=== PATIENT | male | born 1965 | race Caucasian/White ===

== ENCOUNTER → 2019-11-09 09:17 | Outpatient (CLI) | payer OTHER, SELFPAY ==
[2019-11-09 10:08] LABS: Hemoglobin A1c 6.7 % (3.8-5.6)
[2019-11-09 10:09] LABS: ALB/GLOB Ratio 1.2 RATIO (0.9-2.4); AST(SGOT) 20 U/L (15-37); Alanine Aminotransfer ALT/SGPT 51 U/L (16-61); Alkaline Phosphatase 55 U/L (45-117); Anion Gap 8 (5-15); BUN 17 mg/dL (7-18); BUN/Creat Ratio 18.8 RATIO (10-20); Calcium,Total 9.3 mg/dL (8.5-10.1); Chloride 105 mmol/L (98-107); Cholesterol 117 mg/dL (200); EST Glomerular Filtration Rate 93 mL/min (>60); Est Glom Filt Rate - Afr Amer 112 mL/min (>60); Globulin 3.4 g/dL (2.2-4.2); Glucose 174 mg/dL (74-106); High Density Lipoprotein 42 mg/dL; PSA,Total - Annual Screen 0.46 ng/mL (0.00-4.00); Potassium 4.3 mmol/L (3.5-5.1); Protein, Total 7.4 g/dL (6.4-8.2); Sodium Level 140 mmol/L (136-145); Triglycerides 97 mg/dL; Very Low Density Lipoprotein 19 mg/dL (5-40)
== END ==
PROVIDERS: PCP Family Medicine; Visit Provider Family Medicine
DX: Z00.00 Encounter for general adult medical examination without abnormal findings (principal); E11.9 Type 2 diabetes mellitus without complications; Z12.5 Encounter for screening for malignant neoplasm of prostate
CPT/HCPCS: 36415; 80053; 80061; 82043; 82570; 83036; 84153; G0103

== ENCOUNTER → 2022-03-15 | Outpatient (CLI) | payer OTHER, SELFPAY ==
[2022-03-15 12:13] LABS: Absolute Lymphocyte Count 2.86 X10^3/uL (0.83-4.51); Basophil# 0.08 X10^3/uL; Eosinophil# 0.23 X10^3/uL; Hematocrit 39.9 % (40-54); Hemoglobin 13.2 g/dL (13.0-16.5); Lymphocyte # 2.86 X10^3/ul (0.83-4.51); Lymphocyte % 37.4 % (19-41); Mean Corp Hgb Conc 33.1 g/dL (32-36); Mean Corpuscular Hgb 29.4 pg (27.0-32.0); Mean Corpuscular Volume 88.9 fL (80-94); Mean Platelet Vol. 11.3 fl (6.2-12.0); Monocyte# 0.49 X10^3/uL; Monocyte% 6.4 % (0-10); NRBC Flagged by Analyzer 0 % (0-5); Neutrophil # 3.97 X10^3/uL (2.7-7.7); Neutrophil % 51.9 % (47-70); Platelet Count 345 K/mm3 (150-450); RBC Distribution Width CV 13.3 % (11.6-14.6); RBC Distribution Width SD 43.6 fl (35.1-43.9); Red Blood Count 4.49 M/mm3 (4.6-6.2); White Blood Count 7.7 K/mm3 (4.4-11.0)
[2022-03-15 12:19] LABS: ALB/GLOB Ratio 1.2 RATIO (0.9-2.4); AST(SGOT) 34 U/L (15-37); Alanine Aminotransfer ALT/SGPT 57 U/L (16-61); Alkaline Phosphatase 51 U/L (45-117); Anion Gap 10 (5-15); BUN 22 mg/dL (7-18); BUN/Creat Ratio 21.8 RATIO (10-20); Calcium,Total 9.2 mg/dL (8.5-10.1); Chloride 103 mmol/L (98-107); Cholesterol 109 mg/dL (200); Creatinine, Serum 1.01 mg/dL (0.70-1.30); EST Glomerular Filtration Rate 81 mL/min (>60); Est Glom Filt Rate - Afr Amer 98 mL/min (>60); Globulin 3.3 g/dL (2.2-4.2); Glucose 138 mg/dL (74-106); High Density Lipoprotein 36 mg/dL; PSA,Total - Annual Screen 0.48 ng/mL (0.00-4.00); Potassium 3.8 mmol/L (3.5-5.1); Protein, Total 7.3 g/dL (6.4-8.2); Sodium Level 138 mmol/L (136-145); Triglycerides 181 mg/dL; Very Low Density Lipoprotein 36 mg/dL (5-40)
[2022-03-15 12:53] LABS: Microalbumin:Creatinine Ratio 351.1 mg/g CRE (<30 mg/g CRE)
== END | disposition home or self-care (01) ==
LOC: BFHLAB 10:01
PROVIDERS: PCP Family Medicine; Visit Provider Family Medicine
DX: Z00.00 Encounter for general adult medical examination without abnormal findings (principal); E11.9 Type 2 diabetes mellitus without complications; Z12.5 Encounter for screening for malignant neoplasm of prostate
CPT/HCPCS: 36415; 80053; 80061; 82043; 82570; 84153; 85025; G0103

== ENCOUNTER → 2023-06-06 | Outpatient (CLI) | payer BC, SELFPAY ==
--- OUTSIDE RECORDS SUMMARY | 2023-06-06 09:56 | XMS RPT_ITS | CCD ---
Author Name Unknown Address [address] [place] [address] Organization [facility] Allergies Allergy Classification Reported Allergen(s) Allergy Type Date of Onset Reaction(s) Facility (1 source) HOMEOPATHIC PRODUCTS; Translations: [HOMEOPATHIC PRODUCTS] Propensity to adverse reactions to drug (disorder) [facility] Other [place] Repository Problems Problem Classification Problem Date Documented Da te Episodic/Chronic Skin and subcutaneous tissue infections (1 source) Cellulitis of right finger; Translations: [Cellulitis of right finger] Onset: 10-28-2016 Episodic Encounters Encounter Date Encounter Type Care Provider Facility Start: 10-28-2016 End: 10-29-2016 Emergency department patient visit [facility] Progress note 02-13-2021 Note Date & Type Note Facility 02-13-2021 Note HNO ID: [id number] Author: Ayah Alonzo Service: ? Author Type: ? Type: Progress Notes Filed: 02/13/2021 12:21 PM Note Text: POPULATION HEALTH NAVIGATION OUTREACH Action/I Colorectal Cancer Screening- Lm and sent Sanerahart message with call back number. Contact made with patient or family member? NO Pt identified by name and : NO Outreach Outcome/Action Unable to reach patient: Left message MyChart message sent Reason for Outreach Care Gap or Scheduling/Wellness visits Payer: Payor: LIMITED BENEFITS PLAN / Plan: ADMINISTRATIVE CONCEPTS / Product Type: Other / Care Gap Reviewed:: Annual Wellness visit Colorectal Cancer Screening Diabetic Eye Exam HBA1C Reminder: Reminder note to check Health Maintenance for items below Health Maintenance items due: COVID-19 VACCINE(1) Never done HIV SCREENING Never done SHINGRIX VACCINE(1 of 2) Never done DEPRESSION SCREENING due on 01/21/2019 HBA1C due on 01/23/2019 LDL CHOLESTEROL due on 07/24/2019 DIABETIC FOOT EXAM due on 07/25/2019 ANNUAL PCP TEAM CHRONIC DISEASE VISIT due on 07/25/2019 DILATED RETINAL EXAM due on 10/10/2019 COLORECTAL CANCER SCREENING due on 02/04/2020 PROSTATE CANCER SCREENING DISCUSSION due on 04/15/2020 INFLUENZA(1) due on 01/17/2021 Navigation Signature: Ayah Clarke [facility] February 13, 2021 12:10 PM [facility] Clinical Note 02-13-2021 Note Date & Type Note Facility 02-13-2021 Note Patient Outreach (NE TNAV) NICK COTE ([id number]) 1965 M Date Time Provider Department 02/13/21 AYAH CLARKE ([facility]) [facility] During your visit today, we recorded the following information about you: Ayah Clarke [facility] 02/13/2021 12:21 PM Signed POPULATION HEALTH NAVIGATION OUTREACH Action/I Colorectal Cancer Screening- Lm and sent Strutta message with call back number. Contact made with patient or family member? NO Pt identified by name and : NO Outreach Outcome/Action Unable to reach patient: [facility] Reason for Outreach Care Gap or Scheduling/Wellness visits Payer: Payor: LIMITED BENEFITS PLAN / Plan: ADMINISTRATIVE CONCEPTS / Product Type: Other / Care Gap Reviewed:: Annual Wellness visit Colorectal Cancer Screening Diabetic Eye Exam HBA1C Reminder: Reminder note to check Health Maintenance for items below Health Maintenance items due: COVID-19 VACCINE(1) Never done HIV SCREENING Never done SHINGRIX VACCINE(1 of 2) Never done DEPRESSION SCREENING due on 01/21/2019 HBA1C due on 01/23/2019 LDL CHOLESTEROL due on 07/24/2019 DIABETIC FOOT EXAM due on 07/25/2019 ANNUAL PCP TEAM CHRONIC DISEASE VISIT due on 07/25/2019 DILATED RETINAL EXAM due on 10/10/2019 COLORECTAL CANCER SCREENING due on 02/04/2020 PROSTATE CANCER SCREENING DISCUSSION due on 04/15/2020 INFLUENZA(1) due on 01/17/2021 Navigation Signature: Ayah Alonzo February 13, 2021 12:10 PM Allergies As of Date: 02/13/2021 Noted Allergy Reaction HAYFEVER (HOMEOPATHIC PRODUCTS) 09/04/2007 Date Reviewed: 07/24/2018 Reviewed by: Alexis Jones - Fully Assessed Reason for Visit: Population Health Navigation Outreach [3910] Cmt: COLORECTAL CANCER SCREENING Prescriptions as of 02/13/2021 - lisinopril (ZESTRIL, PRINIVIL) 20 mg tablet Take 1 tablet by mouth once daily. - metFORMIN (GLUCOPHAGE) 1,000 mg tablet TAKE 1 TABLET BY MOUTH TWICE A DAY WITH MEALS - simvastatin (ZOCOR) 20 mg tablet Take 1 tablet by mouth daily at bedtime. - JANUVIA 100 mg tablet TAKE 1 TABLET BY MOUTH EVERY DAY - blood sugar diagnostic (n1healthUCH ULTRA TEST) test strip once daily. Use as instructed - Aspirin 81 mg Tab Take 1 tablet by mouth once daily. Take with food. - TRAVOPROST, BENZALKONIUM, (TRAVATAN OPHTHALMIC) Use in eyes. - METRONIDAZOLE (METROGEL TOPICAL) Apply to affected area. Problem List As Of Date 02/13/2021 Noted Resolved GLAUCOMA NOS [H40.9] 09/04/2007 ABN BLOOD CHEMISTRY NEC [R79.89] 09/04/2007 ELEV BL PRES W/O HYPERTN [R03.0] 09/04/2007 MIXED HYPERLIPIDEMIA [E78.2] 09/04/2007 HEMATURIA NOS [R31.9] 08/19/2008 Diabetes mellitus type 2, controlled, without c*04/08/2011 Albuminuria [R80.9] 07/21/2012 Special screening for malignant neoplasms, colo*02/03/2015 02/03/2015 Encounter Status:Closed by AYAH CARLOS on 02/13/21 [facility] Progress note 08-08-2020 Note Date & Type Note Facility 08-08-2020 Note HNO ID: [id number] Author: Sheela Cedillo Service: ? Author Type: ? Type: Progress Notes Filed: 08/08/2020 2:49 PM Note Text: POPULATION HEALTH NAVIGATION OUTREACH Action/FYI Patient declined services. No reason given Contact made with patient or family member? YES Pt identified by name and : YES Outreach Outcome/Action Spoke to patient or caregiver: Patient declined navigation services Reason for Outreach Care Gap or Scheduling/Wellness visits Payer: Payor: LIMITED BENEFITS PLAN / Plan: ADMINISTRATIVE CONCEPTS / Product Type: Other / Care Gap Reviewed:: Colorectal Cancer Screening Diabetic Eye Exam Reminder: Reminder note to check Health Maintenance for items below Health Maintenance items due: HIV SCREENING Completed SHINGRIX VACCINE(1 of 2) Completed DEPRESSION SCREENING due on 01/21/2019 HBA1C due on 01/23/2019 LDL CHOLESTEROL due on 07/24/2019 DIABETIC FOOT EXAM due on 07/25/2019 ANNUAL PCP TEAM CHRONIC DISEASE VISIT due on 07/25/2019 DILATED RETINAL EXAM due on 10/10/2019 INFLUENZA(1) due on 01/18/2020 COLORECTAL CANCER SCREENING due on 02/04/2020 PROSTATE CANCER SCREENING DISCUSSION due on 04/15/2020 Advanced Directives Completed: Have you ever planned for future healthcare decisions with a power of corporate associate attorney, living will, or advance directives? Referrals: Message Sent to Practice: Navigation Signature: Sheela Cedillo August 08, 2020 2:40 PM [facility] Clinical Note 08-08-2020 Note Date & Type Note Facility 08-08-2020 Note Patient Outreach (NE TNAV) NICK COTE ([id number]) 1965 M Date Time Provider Department 08/08/20 LOLA SAMUEL During your visit today, we recorded the following information about you: Sheela Cedillo 08/08/2020 2:49 PM Signed POPULATION HEALTH NAVIGATION OUTREACH Action/FYI Patient declined services. No reason given Contact made with patient or family member? YES Pt identified by name and : YES Outreach Outcome/Action Spoke to patient or caregiver: Patient declined navigation services Reason for Outreach Care Gap or Scheduling/Wellness visits Payer: Payor: LIMITED BENEFITS PLAN / Plan: ADMINISTRATIVE CONCEPTS / Product Type: Other / Care Gap Reviewed:: Colorectal Cancer Screening Diabetic Eye Exam Reminder: Reminder note to check Health Maintenance for items below Health Maintenance items due: HIV SCREENING Completed SHINGRIX VACCINE(1 of 2) Completed DEPRESSION SCREENING due on 01/21/2019 HBA1C due on 01/23/2019 LDL CHOLESTEROL due on 07/24/2019 DIABETIC FOOT EXAM due on 07/25/2019 ANNUAL PCP TEAM CHRONIC DISEASE VISIT due on 07/25/2019 DILATED RETINAL EXAM due on 10/10/2019 INFLUENZA(1) due on 01/18/2020 COLORECTAL CANCER SCREENING due on 02/04/2020 PROSTATE CANCER SCREENING DISCUSSION due on 04/15/2020 Advanced Directives Completed: Have you ever planned for future healthcare decisions with a power of corporate associate attorney, living will, or advance directives? Referrals: Message Sent to Practice: Navigation Signature: Sheela Cedillo August 08, 2020 2:40 PM Allergies As of Date: 08/08/2020 Noted Allergy Reaction HAYFEVER (HOMEOPATHIC PRODUCTS) 09/04/2007 Date Reviewed: 07/24/2018 Reviewed by: Alexis Jones - Fully Assessed Reason for Visit: Population Health Navigation Outreach [3910] Cmt: Deferred Care Prescriptions as of 08/08/2020 Sig: LISINOPRIL 20 MG TABLET Take 1 tablet by mouth once d* METFORMIN 1,000 MG TABLET TAKE 1 TABLET BY MOUTH TWICE * SIMVASTATIN 20 MG TABLET Take 1 tablet by mouth daily * JANUVIA 100 MG TABLET TAKE 1 TABLET BY MOUTH EVERY * BLOOD SUGAR DIAGNOSTIC STRIPS once daily. Use as instructed ASPIRIN 81 MG TABLET Take 1 tablet by mouth once d* TRAVATAN OPHTHALMIC Use in eyes. METROGEL TOPICAL Apply to affected area. Problem List As Of Date 08/08/2020 Noted Resolved GLAUCOMA NOS [H40.9] 09/04/2007 ABN BLOOD CHEMISTRY NEC [R79.89] 09/04/2007 ELEV BL PRES W/O HYPERTN [R03.0] 09/04/2007 MIXED HYPERLIPIDEMIA [E78.2] 09/04/2007 HEMATURIA NOS [R31.9] 08/19/2008 Diabetes mellitus type 2, controlled, without c*04/08/2011 Albuminuria [R80.9] 07/21/2012 Special screening for malignant neoplasms, colo*02/03/2015 02/03/2015 Encounter Status:Closed by SHEELA GALINDO on 08/08/20 [facility] Clinical Note 08-07-2020 Note Date & Type Note Facility 08-07-2020 Note Patient Outreach (FP WADS) ROCAELNICK Zamora ([id number]) 1965 M Date Time Provider Department 08/07/20 CHEIKH RITTER During your visit today, we recorded the following information about you: Ubaldo Imtiaz [facility] 08/07/2020 10:30 AM Signed Care Gap Reviewed: Follow-up appointment Phone call placed to patient. Pt identified by name and : YES Outreach Outcome/Action: Spoke to patient or caregiver: Patient declined navigation services If patient deferred or declined to schedule appointment, please indicate the reason(s): Received care somewhere else Ubaldo [facility] Allergies As of Date: 08/07/2020 Noted Allergy Reaction HAYFEVER (HOMEOPATHIC PRODUCTS) 09/04/2007 Date Reviewed: 07/24/2018 Reviewed by: Alexis Jones - Fully Assessed Reason for Visit: Appointment [[id number]] Prescriptions as of 08/07/2020 Sig: LISINOPRIL 20 MG TABLET Take 1 tablet by mouth once d* METFORMIN 1,000 MG TABLET TAKE 1 TABLET BY MOUTH TWICE * SIMVASTATIN 20 MG TABLET Take 1 tablet by mouth daily * JANUVIA 100 MG TABLET TAKE 1 TABLET BY MOUTH EVERY * BLOOD SUGAR DIAGNOSTIC STRIPS once daily. Use as instructed ASPIRIN 81 MG TABLET Take 1 tablet by mouth once d* TRAVATAN OPHTHALMIC Use in eyes. METROGEL TOPICAL Apply to affected area. Problem List As Of Date 08/07/2020 Noted Resolved GLAUCOMA NOS [H40.9] 09/04/2007 ABN BLOOD CHEMISTRY NEC [R79.89] 09/04/2007 ELEV BL PRES W/O HYPERTN [R03.0] 09/04/2007 MIXED HYPERLIPIDEMIA [E78.2] 09/04/2007 HEMATURIA NOS [R31.9] 08/19/2008 Diabetes mellitus type 2, controlled, without c*04/08/2011 Albuminuria [R80.9] 07/21/2012 Special screening for malignant neoplasms, colo*02/03/2015 02/03/2015 Encounter Status:Closed by HI LIFT OPERATOR GALILEA UBALDO Imtiaz on 08/07/20 [facility] Progress note 08-07-2020 Note Date & Type Note Facility 08-07-2020 Note HNO ID: [id number] Author: Ubaldodeanna Alonzo Service: ? Author Type: ? Type: Progress Notes Filed: 08/07/2020 10:30 AM Note Text: Care Gap Reviewed: Follow-up appointment Phone call placed to patient. Pt identified by name and : YES Outreach Outcome/Action: Spoke to patient or caregiver: Patient declined navigation services If patient deferred or declined to schedule appointment, please indicate the reason(s): Received care somewhere else Ubaldo Alonzo [facility] Summary Purpose Family History No Family History Records FoundNo Family History Records Found Advance Directives No Advanced Directives Records FoundNo Advanced Directives Records Found Additional Source Comments (unrecognized sect ion and content) No Status Records FoundNo Status Records Found INFORMATION SOURCE (unrecogn ized section and content) DATE CREATED AUTHOR AUTHOR'S ORGANIZ ATION 07/12/2021 [facility] FOR RECORDS PERTAINING TO PATIENTS WHO ARE OR HAVE BEEN ENROLLED IN A CHEMICAL DEPENDENCY/SUBSTANCEABUSE PROGRAM, SOME INFORMATION MAY BE OMITTED. This clinical summary was aggregated from multiple sources. Caution should be exercised in using it in the provision of clinical care. This summary normalizes information from multiple sources, and as a consequence, information in this document may materially change the coding, format and clinical context of patient data. In addition, data may be omitted in some cases. CLINICAL DECISIONS SHOULD BE BASED ON THE PRIMARY CLINICAL RECORDS. [employer] provides no warranty or guarantee of the accuracy or completeness of information in this document.
[2023-06-06 12:32] LABS: Absolute Lymphocyte Count 2.45 X10^3/uL (0.83-4.51); Absolute Neutrophil Count 4.6 X10^3/uL (2.0-7.7); Basophil# 0.06 X10^3/uL; Basophil% 0.8 % (0-1); Eosinophil# 0.29 X10^3/uL; Eosinophils% 3.7 % (0-5); Hematocrit 40.4 % (40-54); Hemoglobin 12.5 g/dL (13.0-16.5); Lymphocyte # 2.45 X10^3/ul (0.83-4.51); Lymphocyte % 31.1 % (19-41); Mean Corp Hgb Conc 30.9 g/dL (32-36); Mean Corpuscular Volume 90.6 fL (80-94); Mean Platelet Vol. 11.4 fl (6.2-12.0); Monocyte% 6.4 % (0-10); NRBC Flagged by Analyzer 0 % (0-5); Neutrophil # 4.55 X10^3/uL (2.7-7.7); Neutrophil % 57.7 % (47-70); Platelet Count 345 K/mm3 (150-450); RBC Distribution Width CV 13.3 % (11.6-14.6); RBC Distribution Width SD 43.9 fl (35.1-43.9); Red Blood Count 4.46 M/mm3 (4.6-6.2); White Blood Count 7.9 K/mm3 (4.4-11.0)
[2023-06-06 13:21] LABS: ALB/GLOB Ratio 1.2 RATIO (0.9-2.4); AST(SGOT) 44 U/L (15-37); Alanine Aminotransfer ALT/SGPT 66 U/L (16-61); Alkaline Phosphatase 50 U/L (45-117); Anion Gap 8 (5-15); BUN 21 mg/dL (7-18); BUN/Creat Ratio 21.4 RATIO (10-20); Calcium,Total 9.7 mg/dL (8.5-10.1); Chloride 104 mmol/L (98-107); Cholesterol 103 mg/dL (200); Creatinine, Serum 0.98 mg/dL (0.70-1.30); EST Glomerular Filtration Rate 83 mL/min (>60); Est Glom Filt Rate - Afr Amer 101 mL/min (>60); Globulin 3.4 g/dL (2.2-4.2); Glucose 170 mg/dL (74-106); High Density Lipoprotein 37 mg/dL; Potassium 4.4 mmol/L (3.5-5.1); Protein, Total 7.4 g/dL (6.4-8.2); Sodium Level 137 mmol/L (136-145); Triglycerides 167 mg/dL; Very Low Density Lipoprotein 33 mg/dL (5-40)
[2023-06-06 13:33] LABS: Microalbumin:Creatinine Ratio 365.3 mg/g CRE (<30 mg/g CRE)
== END | disposition home or self-care (01) ==
LOC: BFHLAB 09:28
PROVIDERS: PCP Family Medicine; Visit Provider Family Medicine
DX: Z00.00 Encounter for general adult medical examination without abnormal findings (principal); E11.9 Type 2 diabetes mellitus without complications; Z12.5 Encounter for screening for malignant neoplasm of prostate
CPT/HCPCS: 36415; 80053; 80061; 82043; 82570; 84153; 85025; G0103

== ENCOUNTER → 2024-08-20 | Outpatient (CLI) | payer OTHER, SELFPAY ==
[2024-08-20 12:18] LABS: Absolute Lymphocyte Count 2.92 X10^3/uL (0.83-4.51); Absolute Neutrophil Count 7.3 X10^3/uL (2.0-7.7); Basophil# 0.05 X10^3/uL; Basophil% 0.4 % (0-1); Eosinophil# 0.55 X10^3/uL; Eosinophils% 4.8 % (0-5); Hematocrit 40.8 % (40-54); Lymphocyte # 2.92 X10^3/ul (0.83-4.51); Lymphocyte % 25.4 % (19-41); Mean Corp Hgb Conc 31.9 g/dL (32-36); Mean Corpuscular Hgb 28.6 pg (27.0-32.0); Mean Corpuscular Volume 89.7 fL (80-94); Mean Platelet Vol. 11.2 fl (6.2-12.0); Monocyte# 0.65 X10^3/uL; Monocyte% 5.7 % (0-10); NRBC Flagged by Analyzer 0 % (0-5); Neutrophil # 7.28 X10^3/uL (2.7-7.7); Neutrophil % 63.4 % (47-70); Platelet Count 395 K/mm3 (150-450); RBC Distribution Width CV 13.3 % (11.6-14.6); RBC Distribution Width SD 43.4 fl (35.1-43.9); Red Blood Count 4.55 M/mm3 (4.6-6.2); White Blood Count 11.5 K/mm3 (4.4-11.0)
[2024-08-20 12:45] LABS: Microalbumin:Creatinine Ratio 562.3 mg/g CRE
[2024-08-20 12:48] LABS: Hemoglobin A1c 6.9 % (<=5.6)
[2024-08-20 13:32] LABS: ALB/GLOB Ratio 1.5 RATIO (0.9-2.4); AST(SGOT) 28 U/L (<=37); Alanine Aminotransfer ALT/SGPT 38 U/L (<=46); Albumin, Serum 4.5 g/dL (3.5-5.0); Alkaline Phosphatase 59 U/L (40-129); Anion Gap 14 (5-15); BUN 19 mg/dL (4-19); Calcium,Total 10.4 mg/dL (7.6-11.0); Carbon Dioxide 22.5 mmol/L (21.0-32.0); Chloride 105 mmol/L (98-108); Creatinine, Serum 1.02 mg/dL (0.70-1.20); EST Glomerular Filtration Rate 85 (>60); Glucose 129 mg/dL (70-99); PSA,Total - Annual Screen 0.52 ng/mL (0.02-4.00); Potassium 4.8 mmol/L (3.3-5.1); Protein, Total 7.5 g/dL (5.9-8.4); Sodium Level 142 mmol/L (133-145)
[2024-08-20 13:47] LABS: Cholesterol 119 mg/dL (<=200); High Density Lipoprotein 34 mg/dL; Low Density Lipoprotein Calc. 44 mg/dL; Triglycerides 206 mg/dL; Very Low Density Lipoprotein 41 mg/dL (5-40); cholesterol:hdl ratio screen 3.47
== END | disposition home or self-care (01) ==
PROVIDERS: PCP Family Medicine; Referring Provider Family Medicine; Visit Provider Family Medicine
DX: Z00.00 Encounter for general adult medical examination without abnormal findings (principal); E11.9 Type 2 diabetes mellitus without complications; Z12.5 Encounter for screening for malignant neoplasm of prostate
CPT/HCPCS: 36415; 80053; 80061; 82043; 82570; 83036; 84153; 85025; G0103